=== PATIENT | male | born 1980 ===

== ENCOUNTER → 2024-12-10 | Outpatient (CLI) | payer OTHER ==
--- NOTE | 2024-12-10 12:10 | DVH ---
CLINICAL INDICATION: FOOT PAIN/SWELLING TECHNIQUE: Noncontrast CT of the left foot was performed. Sagittal and coronal reformatted images are provided. COMPARISON: None CT Dose: CTDI volume is 7.75 mGy. Dose-length product is 209.97 mGy*cm FINDINGS: No fracture or dislocation. No abnormal alignment of the joints. There is cortical irregularity in th e anterior process of the talus which demonstrates a focally prominent dorsal margin. There is overly ing soft tissue swelling and thickening. IMPRESSION: 1. Cortical irregularity/ lucencies in the anterior process of the talus which demonstrates a focally prominent dorsal margin. There is overlying soft tissue swelling. MRI of the left foot without and with intravenous contrast is recommended for further evaluation of the finding. All CT scans at this medical facility are performed using dose modulation techniques as appropriate t o a performed exam including the following: Automated exposure control was utilized; adjustment of th e MA and/or KV according to patient size; and use of iterative reconstruction technique.
== END | disposition home or self-care (01) ==
LOC: CT 09:20
DX: M79.672 Pain in left foot (principal)
CPT/HCPCS: 73700